=== PATIENT | female | born 1980 | race Caucasian/White ===

== ENCOUNTER → 2024-04-16 07:52 | Outpatient (CLI) | payer OTHER, SELFPAY ==
[2024-04-16 08:43] LABS: COVID-19 CEPHEID 4-PLEX PCR Negative (Negative); Influenza A - CEPHEID Flu A NEGATIVE (NEGATIVE); Influenza B - CEPHEID Flu B NEGATIVE (NEGATIVE); Respiratory Syncytial Virus Negative (Negative)
== END ==
PROVIDERS: Visit Provider Nurse Practitioner Family
DX: R50.9 Fever, unspecified (principal)
CPT/HCPCS: 0241U